=== PATIENT | male | born 1975 | race Hispanic/Latino ===

== ENCOUNTER → 2021-02-22 10:34 | Outpatient (CLI) | payer OTHER, MEDICAID, SELFPAY ==
--- NOTE | 2021-02-22 | DI.RAD.S_ITS ---
PROCEDURE: XR LUMBAR SPINE MIN 4V INDICATIONS: dorsalgia TECHNIQUE: 5 views of the lumbar spine were acquired, including bilateral oblique views. COMPARISON: None. FINDINGS: Bones: 5 nonrib-bearing vertebrae are present. There is normal bony alignment. No vertebral body compression fractures. No suspicious bony lesions. Lower lumbar facet arthropathy. Soft tissues: Overlying bowel gas pattern is normal. No suspicious soft tissue calcifications. Oblique images: No pars defects. IMPRESSION: Lower lumbar facet arthropathy. No evidence acute bony abnormality of the lumbar spine. If clinical suspicion and/or symptoms persist, further assessment with repeat plain films, or advanced imaging (e.g., CT, MRI, or bone scan) may be helpful for further assessment. Dictated by: Satinder Cutler M.D. on 02/22/2021 at 13:01 Approved by: Satinder Cutler M.D. on 02/22/2021 at 13:02
== END ==
PROVIDERS: Referring Provider Physician Assistant Medical; Visit Provider Physician Assistant Medical
DX: M54.9 Dorsalgia, unspecified (principal); M47.816 Spondylosis without myelopathy or radiculopathy, lumbar region
CPT/HCPCS: 72110

== ENCOUNTER → 2024-04-09 08:57 | Outpatient (CLI) | payer OTHER, MEDICAID, SELFPAY ==
--- NOTE | 2024-04-09 09:00 | DI.US.S_ITS ---
PROCEDURE: US ABDOMEN LIMITED INDICATIONS: RIGHT LOWER QUADRANT PAIN TECHNIQUE: Real-time focused scanning was performed of the abdomen, with image documentation. COMPARISON: None. FINDINGS: No visualization of hernia. No mass lesion. IMPRESSION: Unremarkable exam. Dictated by: Eneida Ogden M.D. on 04/09/2024 at 15:42 Approved by: Eneida Ogden M.D. on 04/09/2024 at 15:42
== END ==
PROVIDERS: Referring Provider Physician Assistant; Visit Provider Physician Assistant
DX: R10.31 Right lower quadrant pain (principal)
CPT/HCPCS: 76705

== ENCOUNTER 2025-02-14 23:05 | Emergency (ER) | payer SELFPAY ==
[2025-02-14 23:10] VITALS: BP 121/59; PULSE 85; RESP 17; TEMP 36.4; O2SAT 97; BMI 31.9
--- NOTE | 2025-02-14 23:29 | PC.NURSE ---
Pt also reports pain and limited movement to L shoulder and requests XR.
--- NOTE | 2025-02-14 23:30 | DI.RAD.S_ITS ---
PROCEDURE: XR SHOULDER LT MIN 2V INDICATIONS: fall, pain TECHNIQUE: Two views of the shoulder were acquired. COMPARISON: None. FINDINGS: Bones: No fractures or dislocations. No suspicious bony lesions. Visualized ribs appear intact. Soft tissues: No suspicious soft tissue calcifications. IMPRESSION: No acute bony abnormality. Dictated by: Gabriela Nye M.D. on 02/15/2025 at 1:08 Approved by: Gabriela Nye M.D. on 02/15/2025 at 1:08
--- NOTE | 2025-02-14 23:30 | DI.RAD.S_ITS ---
PROCEDURE: XR HUMERUS RT 2V INDICATIONS: fall, pain TECHNIQUE: 2 views of the humerus were acquired. COMPARISON: None. FINDINGS: Bones: No fractures or dislocations. No suspicious bony lesions. Soft tissues: No suspicious soft tissue calcifications. IMPRESSION: No acute bony abnormality. Dictated by: Gabriela Nye M.D. on 02/15/2025 at 1:09 Approved by: Gabriela Nye M.D. on 02/15/2025 at 1:09
--- NOTE | 2025-02-14 23:30 | DI.RAD.S_ITS ---
PROCEDURE: XR SHOULDER RT MIN 2V INDICATIONS: fall, pain TECHNIQUE: To views of the shoulder were acquired. COMPARISON: None. FINDINGS: Bones: No fractures or dislocations. No suspicious bony lesions. Visualized ribs appear intact. Soft tissues: No suspicious soft tissue calcifications. IMPRESSION: No acute bony abnormality. Dictated by: Gabriela Nye M.D. on 02/15/2025 at 1:09 Approved by: Gabriela Nye M.D. on 02/15/2025 at 1:11
--- NOTE | 2025-02-15 05:20 | ED_ITS ---
HPI - Extremity Injury (Upper) General Chief Complaint: Extremity Injury, Upper Stated Complaint: Rt arm injury Time Seen by Provider: 02/15/25 05:18 Source: patient, RN notes reviewed and old records reviewed Mode of arrival: Ambulatory Limitations: language barrier (Extruder Operator service used.) History of Present Illness HPI narrative: 50-year-old male had a fall while working with a lawnmower and tripping on a r ock. Fell onto his right shoulder arm was little bit out. Since then he has had persistent pain in his shoulder. It is painful to try to lift it up. Patient denies numbness tingling or weakness. No difficulty with operations support professionals. Denies any other injuries. States it is in the shoulder itself not in the forearm or elbow. Patient denies any other injuries. Patient has been taking Aleve without improvement. Denies any daily medications. Has not allergy to penicillin. Related Data Home Medications Medication Instructions Recorded Confirmed NAPROXEN (NAPROSYN) 500 mg PO Q12HP ##0 04/14/12 cetirizine 10 mg tablet 10 mg PO ##0 04/14/12 Previous Rx's Medication Instructions Recorded hydrocodone 5 mg-acetaminophen 325 1 tab PO Q6H PRN pain #10 tabs 02/15/25 mg tablet Allergies Allergy/AdvReac Type Severity Reaction Status Date / Time Penicillins Allergy ITCHING Verified 02/14/25 23:27 Review of Systems Review of Systems ROS Unobtainable: All systems reviewed & are unremarkable except as noted in HPI and below Patient History Social History Smoking Status: Never smoker Smoking Status: Never smoker Exam Narrative Exam Narrative: GENERAL: Alert and oriented x three, male in mild distress HEENT: Head normocephalic, atraumatic, EOMI, pupils reactive, face symmetric, moist mucous membranes NECK: Supple, full range of motion CARDIOVASCULAR: Regular rate and rhythm without murmurs, rubs or gallops. RESPIRATORY: Breath sounds equal bilaterally, no wheezes rales or rhonchi. ABDOMEN: Soft, nontender. Normoactive bowel sounds all 4 quadrants. No guarding or rebound, rigidity, no mass : No CVA tenderness EXTREMITIES: Decreased range of motion at the right shoulder, patient can, up to 90? with passive range of motion but is uncomfortable. Patient has quite a bit of pain trying to lift himself. Nontender to palpation of the biceps tendon and internal external rotation. Chief Fundraising Officer are equal bilaterally, equal muscle strength of bilateral upper extremities is 5/5. 2+ radial pulses. No swelling warmth or erythema. Patient has little bit of swelling of the shoulder but no other obvious deformity. No clubbing or edema. Neurovascularly intact. NEUROLOGICAL: Cranial nerves II through XII grossly intact. Moving all extremities SKIN: Warm, dry, no petechiae, no rashes or lesions. Initial Vital Signs Initial Vital Signs: Vital Signs Temperature 97.5 F L 02/14/25 23:10 Pulse Rate 85 02/14/25 23:10 Respiratory Rate 17 02/14/25 23:10 Blood Pressure 121/59 L 02/14/25 23:10 Pulse Oximetry 97 02/14/25 23:10 Oxygen Delivery Method Room Air 02/14/25 23:10 Course Orders Ordered: Discontinued Medications Hydrocodone Bitart/Acetaminophen (Hydrocodone/Acet 5/325 Prepack) 1 bottle MISC DIRECTED ONE Stop: 02/15/25 05:52 Last Admin: 02/15/25 05:59 Dose: 1 bottle Documented By: MAHENDRA Vital Signs Vital signs: Vital Signs - 8 hr 02/14/25 23:10 Temperature 97.5 F L Pulse Rate 85 Respiratory Rate 17 Blood Pressure 121/59 L Pulse Oximetry 97 Oxygen Delivery Method Room Air MDM - Extremity Injury (Upper) MDM Narrative Medical decision making narrative: Right shoulder x-ray shows no acute bony change. Left shoulder x-ray shows no acute bony change. Right humeral fracture shows no acute change. Discussed findings with the patient no obvious fracture or dislocation, suspect patient may have rotator cuff tear or other ligament or tendon injury. Patient is neurovascularly intact. We will place in sling, follow up with Orthopedic surgery in the next week if no improvement. Can increase range of motion as tolerated. Patient's has a leave but with minimal improvement we will give a short course of narcotic pain medication. Discharge Plan Departure Patient Disposition: Home Clinical Impression: Acute pain of right shoulder Instructions: DI for Shoulder Pain Activity Restrictions/Additional Instructions: Follow up with primary care and/or orthopedic surgery in the next week if you are not having any improvement of your symptoms. Contacts included below please call to set up an appointment. Can take acetaminophen up to a 1000 mg and/or ibuprofen up to 600 mg every 6 hours needed for pain. If inadequate for pain you can take [place] 1 tablet every 6 hours as needed instead of acetaminophen. This medication can make you sleepy do not drive, perform hazardous activities or make any major decisions w hile taking it. This medication will make you constipated please take a stool softener once to twice daily until stools are soft and regular. Prescription sent to [facility] on [facility]. Splint Care: Keep splint clean and dry. Elevated affected body part to decrease swelling. OK to use ice pack on the affected body part. Use for 15-20 minutes each time, for 5-6x per day. If you develop worsening pain, numbness, tingling, discoloration of the affected body part, adjust the sling, and either see your doctor for an urgent re-assessment, or return to the Emergency Department. Return to the Emergency Department for any new or worsening symptoms. Prescriptions: New hydrocodone-acetaminophen 5-325 mg tablet 1 tab PO Q6H PRN (Reason: pain) Qty: 10 0RF No Action NAPROXEN (NAPROSYN) 500 mg PO Q12HP Qty: 0 cetirizine 10 MG tablet 10 mg PO Qty: 0 Referrals: Katia Fatima MD [Physician] - Stand Alone Forms: Patient Portal/API/Survey
[2025-02-15] MEDS: HYDROCODONE/ACET 5/325 PREPACK 1 BOTTLE MISC (05:59)
[2025-02-15 06:05] VITALS: BP 119/75; PULSE 64; O2SAT 98
[2025-02-15 06:07] VITALS: RESP 20
== END 2025-02-15 06:12 | disposition home or self-care (01) ==
PROVIDERS: Emergency Provider Emergency Medicine
DX: M25.511 Pain in right shoulder (principal); W18.30XA Fall on same level, unspecified, initial encounter
CPT/HCPCS: 73030; 73060; 99283